=== PATIENT | male | born 1965 | race Caucasian/White ===

== ENCOUNTER 2017-03-18 13:33 | Emergency (ER) | payer SELFPAY ==
[~2017-03-18] VITALS: Ht 172.7 cm; Wt 94.3 kg
--- NOTE | 2017-03-18 13:35 | NUR ---
Patient arrived as walk in with compliant of tightness in throat after being stung by 4 bees. Patient denies itching, no hives. Patient to ER [facility] 1 to gown for evaluation. Side rails up. Assumed care of patient.
[2017-03-18 13:36] VITALS: BP_SYST 162
[2017-03-18] MEDS ORDERED: methylPREDNISolone SOD SUCC/PF 62.5 MG/ML VIAL ONE (14:00)
[2017-03-18] MEDS ORDERED: DIPHENHYDRAMINE INJ 50 MG/ML VIAL ONE (14:00)
[2017-03-18] MEDS ORDERED: FAMOTIDINE PF 20 MG/2 ML VIAL ONE (14:00)
[2017-03-18] MEDS ORDERED: FAMOTIDINE PF 20 MG/2 ML VIAL IVP ONE (14:15)
[2017-03-18] MEDS ORDERED: methylPREDNISolone SOD SUCC/PF 62.5 MG/ML VIAL IVP ONE (14:15)
[2017-03-18] MEDS ORDERED: DIPHENHYDRAMINE INJ 50 MG/ML VIAL IVP ONE (14:15)
--- NOTE | 2017-03-18 14:20 | NUR ---
AVERY Pettit at bedside examining patient.
--- NOTE | 2017-03-18 14:30 | NUR ---
Patient states he is sleepy, otherwise feeling improved.
--- NOTE | 2017-03-18 15:12 | NUR ---
Patient given written and verbal discharge instructions and verbalizes understanding. ER MD discussed with patient the results and treatment provided. Patient in stable condition. ID arm band removed. Rx of Prednisone, pepcid given. Patient educated on pain management and to follow up with PMD. Pain Scale 0/10. Opportunity for questions provided and answered.
[2017-03-18 15:33] VITALS: BP_SYST 145
== END 2017-03-18 15:33 | disposition home or self-care (01) ==
LOC: SED 13:33
DX: T63.441A Toxic effect of venom of bees, accidental (unintentional), initial encounter (principal); Y92.89 Other specified places as the place of occurrence of the external cause
CPT/HCPCS: 96374; 96375; 99284; J1200; J2930; J3490